=== PATIENT | male | born 1975 | race Caucasian/White ===

== ENCOUNTER 2016-11-10 13:17 | Emergency (ER) | payer OTHER ==
[~2016-11-10] VITALS: Ht 177.8 cm; Wt 108.9 kg
--- OUTSIDE RECORDS SUMMARY | 2016-11-10 13:49 | External Medical Summary Rpt ---
Author Author , Organization [employer] Address Unknown Phone Unavailable Care Team Providers Care Client Experience Consultant Name Role Phone FELIBERTO DONALD, Unavailable Unavailable FELIBERTO DONALD JEFFREY W, Unavailable Unavailable CARMENCITA PAULINO DAVID A, Unavailable Unavailable RERE SIEGEL [facility], Unavailable Unavailable [facility] AYO GILL, BRIDGET, Unavailable Unavailable VIRAJ MORA, Unavailable Unavailable VIRAJ PEREYRA [facility], Unavailable Unavailable [facility] Merle WHITAKER, Merle WHITAKER Unavailable Unavailable N [id number], Unavailable Unavailable [id number] VIOLETA SINGLETON, Unavailable Unavailable VIOLETA SINGLETON [facility] Unavailable Unavailable [facility], [facility] TUCKER, DIXIE, TUCKER, Unavailable Unavailable DIXIE [facility] Unavailable Unavailable CTR, [facility] Un[facility], [facility] PRANEETH REYES, Unavailable Unavailable PRANEETH REYES [facility] Unavailable Unavailable #[id number], [facility][id number] [facility] Unavailable Unavailable #[id number], [id number] Purpose Continuity of Care Document - 12-22-2007 through 2016 Problems Code Diagnosis DOS Provider Status 79852 OBSTRUCTIVE 10-17-2008 [facility] 48696 RESTLESS 08-18-2008 [place]OR[place], LEGS CARMENCITA Valdez SYNDROME 04368 HYPERSOMNIA 08-18-2008 [place], WITH SLEEP CARMENCITA Valdez [facility] UNSPECIFIED 75273 OTHER 08-18-2008 LORA, MALAISE AND CARMENCITA Valdez FATIGUE 78316 UNSPECIFIED 08-11-2008 [facility] INFECTION IN CCE & UNS SITE 56972 INSOMNIA 08-11-2008 [place] UNSPECIFIED [facility] 24029 OBESITY, 08-03-2008 [facility] UNSPECIFIED MEDICAL CTR 4011 ESSENTIAL 06-30-2008 [place] HYPERTENSIO [facility] N, BENIGN 08505 HELICOBACTE 05-16-2008 [facility] PYLORI [facility] INFECTION 57824 UNS 05-03-2008 GASTRITIS&G [facility]ODU[facility] HEMORR 5589 OTH&UNSPEC 05-03-2008 [facility] NONINFECTIO N EMERGENCY US PHYS INC GASTROENTER ITIS&COLITI S 7804 DIZZINESS 05-03-2008 AND [facility] GIDDINESS [facility] 04005 NAUSEA 05-03-2008 ALONE [facility] 77286 ABDOMINAL 05-03-2008 [facility] [place], RADIOLOGY UNSPECIFIED SITE 84234 ABDOMINAL 05-03-2008 PAIN OTHER [facility] SPECIFIED [facility] 2724 OTHER AND 04-26-2008 [place] UNSPECIFIED [facility] HYPERLIPIDE PABLO 80855 OTH 03-07-2008 [place] [facility] EXTRAPYRAMI [facility] STAN DZ&ABNORM MOVMNT DISORDER 2141 LIPOMA OF 02-08-2008 [facility] RUN OTHER SKIN SURGICAL AND SPECIALIST SUBCUTANEOU S TISSUE 8900 OPEN WOUND 02-08-2008 [facility] HIP&THIGH MEDICAL CTR WITHOUT MENTION COMP V679 UNSPECIFIED 01-21-2008 [place] FOLLOW-UP [facility] EXAMINATION 4019 UNSPECIFIED 01-13-2008 [facility] HYPERTENSIO CENTER N 72556 ASTHMA, 01-13-2008 [facility] UNSPECIFIED MEDICAL , CENTER UNSPECIFIED STATUS 68175 UNSPECIFIED 01-13-2008 [facility] ARTHOPATHY, CENTER HAND V1302 PERSONAL 01-13-2008 [facility] HISTORY OF MEDICAL URINARY CENTER TRACT INFECTION V173 FAMILY 01-13-2008 [facility] HISTORY OF MEDICAL ISCHEMIC CENTER HEART DISEASE V1749 FAMILY 01-13-2008 [facility] HISTORY OF MEDICAL OTHER CENTER CARDIOVASCU LAR DISEASES V175 FAMILY 01-13-2008 [facility] HISTORY OF MEDICAL ASTHMA CENTER 11594 PAIN IN 12-28-2007 [place] [facility] SURGICAL PELVIC SPECIALIST REGION AND THIGH Medications Na ND Rx Da Fi Fi Am Da Di Ph RX Ph St me C No te ll ll ou ys ag ar # ys at rm s nt no ma ic us Or Da si cy ia de te s n re d 58 03 05 01 30 30 FR 84 SH Ac 17 -1 -2 .0 EN 08 OR ti 70 2- 1- 00 CH 2 T ve 36 20 20 BU RA 80 09 09 RG CH 9 EL PH AR MA CY SI 55 11 05 01 30 30 FR 84 SH Ac MV 11 -1 -2 .0 EN 07 OR ti 10 9- 1- 00 CH 2 T ve TA 19 20 20 BU RA TI 90 08 09 RG CH N 5 EL 20 PH AR MG MA CY TA BL ET 58 03 03 00 30 30 FR 84 SH Ac 17 -1 -2 .0 EN 08 OR ti 70 2- 6- 00 CH 2 T ve 36 20 20 BU RA 80 09 09 RG CH 9 EL PH AR MA CY SI 55 11 03 00 30 30 FR 84 SH Ac MV 11 -1 -2 .0 EN 07 OR ti 10 9- 6- 00 CH 2 T ve TA 19 20 20 BU RA TI 90 08 09 RG CH N 5 EL 20 PH AR MG MA CY TA BL ET LO 00 03 03 00 30 30 FR 83 AL Ac RA 90 -0 -1 .0 EN 55 IK ti TA 45 6- 2- 00 CH 8 ER ve DI 83 20 20 BU NE 34 09 09 RG DE -D 8 NI PH S 24 AR O HR MA CY TA BL ET TR 50 03 03 00 30 30 FR 83 AL Ac AZ 11 -0 -1 .0 EN 55 IK ti OD 10 6- 2- 00 CH 9 ER ve ON 43 20 20 BU E 40 09 09 RG DE 10 3 NI 0 PH S MG AR O MA TA CY BL ET 00 03 03 00 30 25 FR 83 AL Ac 03 -0 -1 .0 EN 55 IK ti 70 6- 2- 00 CH 7 ER ve 24 20 20 BU 13 09 09 RG DE 0 NI PH S AR O MA CY CH 00 11 03 00 15 30 ME 46 SH Ac LO 37 -1 -1 .0 NI 00 OR ti RT 80 9- 2- 00 FE 17 T ve SLOAN 21 20 20 E RA LI 30 08 09 CO CH DO 1 UN EL NE TY 50 PH AR MG M TA BL ET ME 49 11 02 00 30 30 ME 45 SH Ac TO 88 -1 -2 .0 NI 90 OR ti IN 40 9- 6- 00 FE 33 T ve OL 40 20 20 E RA OL 60 08 09 CO CH 1 UN EL FOSTER TY CC PH ER AR M 10 0 MG TA B SI 68 11 02 00 30 30 ME 45 SH Ac MV 38 -1 -2 .0 NI 90 OR ti 20 9- 6- 00 FE 32 T ve TA 06 20 20 E RA TI 71 08 09 CO CH N 6 UN EL 20 TY MG PH AR TA M BL ET TR 50 01 01 00 30 30 FR 80 HU Ac AZ 11 -2 -3 .0 EN 42 GH ti OD 10 3- 0- 00 CH 8 ES ve ON 43 20 20 BU E 40 09 09 RG PA 10 3 TR 0 PH IC MG AR K MA D TA CY BL ET CH 00 11 01 02 30 30 FR 76 SH Ac LO 37 -1 -3 .0 EN 36 OR ti RT 80 9- 0- 00 CH 7 T ve SLOAN 22 20 20 BU RA LI 20 08 09 RG CH DO 1 EL NE PH AR 25 MA CY MG TA BL ET 64 11 01 00 30 30 WA 70 SH Ac 72 -1 -1 .0 L- 92 OR ti 00 9- 5- 00 MA 11 T ve 20 20 20 RT 2 RA 41 08 09 CH 0 PH EL AR MA CY #1 14 0 ME 49 11 00 30 30 WA 70 SH Ac TO 88 -1 -1 .0 L- 92 OR ti IN 40 9- 5- 00 MA 11 T ve OL 40 20 20 RT 3 RA OL 60 08 09 CH 1 PH EL FOSTER AR CC MA CY ER #1 10 14 0 0 MG TA B CH 00 11 06 08 30 30 FR 76 SH Ac LO 37 -1 -0 .0 EN 36 OR ti RT 80 9- 1- 00 CH 7 T ve SLOAN 22 20 20 BU RA LI 20 08 09 RG CH DO 1 EL NE PH AR 25 MA CY MG TA BL ET SI 55 11 06 08 30 30 FR 76 SH Ac MV 11 -1 -0 .0 EN 36 OR ti 10 9- 1- 00 CH 9 T ve TA 19 20 20 BU RA TI 90 08 09 RG CH N 5 EL 20 PH AR MG MA CY TA BL ET TE 00 12 12 00 56 14 FR 77 SH Ac TR 17 -0 -1 .0 EN 50 OR ti AC 22 9- 8- 00 CH 9 T ve YC 40 20 20 BU RA LI 78 08 08 RG CH NE 0 EL PH 50 AR 0 MA MG CY CA PS UL E ME 50 12 12 00 52 14 FR 77 AL Ac TR 11 -0 -1 .0 EN 55 IK ti ON 10 9- 8- 00 CH 8 ER ve ID 33 20 20 BU AZ 40 08 08 RG DE OL 2 NI E PH S 50 AR O 0 MA MG CY TA BL ET RO 00 11 12 00 30 30 FR 76 AL Ac PI 37 -1 -1 .0 EN 37 IK ti NI 85 9- 8- 00 CH 0 ER ve RO 50 20 20 BU LE 20 08 08 RG DE 1 NI HC PH S L AR O 2 MA MG CY TA BL ET BI 00 12 12 00 11 14 FR 77 AL Ac SM 90 -0 -1 2. EN 50 IK ti AT 41 9- 8- 00 CH 7 ER ve RO 31 20 20 0 BU L 54 08 08 RG DE TA 6 NI BL PH S ET AR O MA CH CY EW ME 49 11 12 00 30 30 FR 76 AL Ac TO 88 -1 -1 .0 EN 36 IK ti IN 40 9- 8- 00 CH 8 ER ve OL 40 20 20 BU OL 60 08 08 RG DE 1 NI FOSTER PH S CC AR O MA ER CY 10 0 MG TA B IN 37 12 12 00 30 15 FR 77 AL Ac IL 00 -0 -1 .0 EN 50 IK ti OS 00 9- 8- 00 CH 8 ER ve EC 45 20 20 BU 50 08 08 RG DE OT 3 NI C PH S 20 AR O .6 MA CY MG TA BL ET SI 55 11 12 00 30 30 FR 76 AL Ac MV 11 -1 -0 .0 EN 36 IK ti 10 9- 4- 00 CH 9 ER ve TA 19 20 20 BU TI 90 08 08 RG DE N 5 NI 20 PH S AR O MG MA CY TA BL ET CH 00 11 12 00 30 30 FR 76 AL Ac LO 37 -1 -0 .0 EN 36 IK ti RT 80 9- 4- 00 CH 7 ER ve SLOAN 22 20 20 BU LI 20 08 08 RG DE DO 1 NI NE PH S AR O 25 MA CY MG TA BL ET ME 49 08 11 00 30 30 ME 45 HU Ac TO 88 -2 -2 .0 NI 40 GH ti IN 40 0- 0- 00 FE 40 ES ve OL 40 20 20 E OL 60 08 08 CO PA 1 UN TR FOSTER TY IC CC K PH D ER AR M 10 0 MG TA B RO 00 10 11 00 30 30 FR 75 SH Ac PI 37 -3 -0 .0 EN 05 OR ti NI 85 1- 7- 00 CH 8 T ve RO 50 20 20 BU RA LE 20 08 08 RG CH 1 EL HC PH L AR 2 MA MG CY TA BL ET 58 08 10 01 30 30 FR 69 No Ac 17 -2 -2 .0 EN 95 t ti 70 0- 3- 00 CH 5 Av ve 36 20 20 BU ai 80 08 08 RG la 9 bl PH e AR MA CY 00 09 10 00 10 25 FR 72 No Ac 09 -3 -0 0. EN 62 t ti 35 0- 9- 00 CH 5 Av ve 28 20 20 0 BU ai 30 08 08 RG la 1 bl PH e AR MA CY FOSTER 53 09 09 00 28 14 WA 70 SLOAN Ac LF 74 -0 -1 .0 L- 03 N ti AM 60 2- 1- 00 MA 72 NA ve ET 27 20 20 RT 6 NC HO 20 08 08 Y XA 5 PH C ZO AR LE MA -T CY MP #1 DS 0- 11 TA 39 BL ET 58 08 09 00 30 30 FR 69 No Ac 17 -2 -1 .0 EN 95 t ti 70 0- 1- 00 CH 5 Av ve 36 20 20 BU ai 80 08 08 RG la 9 bl PH e AR MA CY TO 00 07 08 01 30 30 FR 67 No Ac IN 18 -1 -2 .0 EN 91 t ti OL 61 6- 8- 00 CH 0 Av ve 09 20 20 BU ai XL 00 08 08 RG la 5 bl 50 PH e AR MG MA CY TA BL ET 00 08 08 00 30 3 RI 55 No Ac 40 -0 -1 .0 TE 55 t ti 60 7- 4- 00 66 Av ve 35 20 20 AI ai 70 08 08 D la 5 PH bl AR e M #3 55 5 TO 00 07 08 00 30 30 FR 67 No Ac IN 18 -1 -0 .0 EN 91 t ti OL 61 6- 1- 00 CH 0 Av ve 09 20 20 BU ai XL 00 08 08 RG la 5 bl 50 PH e AR MG MA CY TA BL ET Results Labs Lab Lab Date Result Refere Interp Status Commen Order Detail nces retati t Range on CBC WITH AUTO DIFF REFLEX (11-21-2013 06:00) Monocyt 16-2 0.4 X 0.3-0.9 Normal complet es # 014 10 3 ed (Auto) 06:00 Lymphoc 11-21-2 2.5 X 1.0-3.3 Normal complet ytes # 014 10 3 ed (Auto) 06:00 Neutrop 16-2 3.3 X 1.8-7.0 Normal complet hils # 014 10 3 ed (Auto) 06:00 Basophi 2 0.4 % 0-1.6 Normal complet ls (%) 014 ed (Auto) 06:00 Eosinop 06-16-2 1.9 % 0.0-5.8 Normal complet hils 014 ed (%) 06:00 (Auto) Monocyt 06-16-2 5.7 % 4.4-11. Normal complet es (%) 014 0 ed (Auto) 06:00 Lymphoc -16-2 38.8 % 17.6-40 Normal complet ytes 014 .8 ed (%) 06:00 (Auto) Basophi -16-2 0.0 X 0.0-0.2 Normal complet ls # 014 10 3 ed (Auto) 06:00 Comment: If a manual differential is indicated, submit order within Comment: 48 hours" Eosinop -16-2 0.1 X 0.0-0.5 Normal complet hils # 014 10 3 ed (Auto) 06:00 Neutrop -16-2 51.6 % 43.1-74 Normal complet hils 014 .8 ed (%) 06:00 (Auto) Mean 16-2 7.6 fL 6.0-10. Normal complet Platele 014 0 ed t 06:00 Volume Platele 16-2 163 x10 130-400 Normal complet t Count 014 3 ed 06:00 Red 16-2 14.2 % 11.5-14 Normal complet Cell 014 .5 ed Distrib 06:00 ution Width Mean 16-2 34.2 32-36 Normal complet Corpusc 014 g/dL ed ular 06:00 Hemoglo bin Concent Mean 16-2 27.3 pg 27-31 Normal complet Corpusc 014 ed ular 06:00 Hemoglo bin Mean 16-2 79.8 fL 80-94 Below complet Corpusc 014 low ed ular 06:00 normal Volume Hematoc 16-2 37.1 % 42.0-52 Below complet rit 014 .0 low ed 06:00 normal Hemoglo -16-2 12.7 14.0-18 Below complet bin 014 g/dL .0 low ed 06:00 normal Red -16-2 4.65 X 4.70-6. Below complet Blood 014 10 6 10 low ed Count 06:00 normal White 16-2 6.4 X 4.8-10. Normal complet Blood 014 10 3 8 ed Count 06:00 BASIC METABOLIC PANEL (11-21-2013 06:00) Glucose 295 70-100 Above complet Level 014 mg/dL high ed 06:00 normal BUN/Cre 10.1 7.0-25. Normal complet atinine 014 0 ed Ratio 06:00 Creatin >*59 Normal complet ine w 014 mL/min/ ed Estimat 06:00 1 ed GFR Comment: An eGFR of <60 mL/min/1.73 m2 for three months or more is Comment: indicative of chronic kidney disease. Patients with eGFR Comment: values > or = 60 mL/min/1.73 m2 may have chronic kidney Comment: disease if evidence of persistent proteinuria is present. Comment: Reference: [email or web address] Comment: *Units are mL/min/1.73m2 Creatin 0.8 0.7-1.2 Normal complet ine 014 mg/dL ed 06:00 Blood 8.1 6-20 Normal complet Urea 014 mg/dL ed Nitroge 06:00 n Anion 11 8-16 Normal complet Gap 014 ed 06:00 Carbon 23 22-29 Normal complet Dioxide 014 mmol/L ed Level 06:00 Chlorid 101.8 98-107 Normal complet e Level 014 mmol/L ed 06:00 Potassi 3.6 3.5-5.1 complet um 014 mmol/L ed Level 06:00 Sodium 136 136-145 Normal complet Level 014 mmol/L ed 06:00 Calcium 8.9 8.4-10. Normal complet Level 014 mg/dL 2 ed 06:00 Calcula 281 275-295 Normal complet corby 014 mOsm/L ed Osmolal 06:00 ity URINE MICROSCOPIC (11-19-2013 19:56) BACTERI TRACE NONE Normal complet A,URINE 014 /hpf SEEN ed 19:56 SQUAMOU NONE 0-5 Normal complet S 014 SEEN ed EPITHEL 19:56 /hpf IAL CELL,UR WBC,URI 0-5 0-5 Normal complet NE 014 /hpf ed 19:56 RBC,URI NONE 0-5 Normal complet NE 014 SEEN ed 19:56 /hpf LEUKOCY 06-14-2 NEGATIV NEGATIV Normal complet TE 014 E E ed ESTERAS 19:56 E ,URINE UROBILI 06-14-2 0.2 0.0-1.0 Normal complet NOGEN,U 014 E.H./dL ed RINE 19:56 Urine 06-14-2 NEGATIV NEGATIV Normal complet Bilirub 014 E E ed in 19:56 Comment: THE COLOR OF THE URINE CAN CAUSE A POSITIVE BILIRUBIN. NITRATE 06-14-2 NEGATIV NEGATIV Normal complet ,URINE 014 E E ed 19:56 Urine 06-14-2 NEGATIV NEGATIV Normal complet Ketones 014 E mg/dL E ed 19:56 Urine 06-14-2 >=1000 NEGATIV Abnorma complet Glucose 014 mg/dL E l ed (UA) 19:56 Urine 06-14-2 30 NEGATIV Abnorma complet Protein 014 mg/dL E l ed 19:56 mg/dL Urine 06-14-2 1.040 1.003-1 Above complet Specifi 014 .035 high ed c 19:56 normal [place] Urine -14-2 5.5 4.5-8.0 Normal complet pH 014 ed 19:56 BLOOD, 06-14-2 SMALL NEGATIV Abnorma complet URINE 014 E l ed 19:56 Urine 06-14-2 CLEAR Normal complet Appeara 014 ed nce 19:56 Urine 06-14-2 YELLOW Normal complet Color 014 ed 19:56 SOURCE, -14-2 CLEAN Normal complet URINE 014 CATCH ed 19:56 CLINITEST,URINE (11-19-2013 19:56) CLINITE 06-14-[address],URIN 014 mg/dL E ed E 19:56 CBC WITH AUTO DIFF REFLEX (11-19-2013 19:10) Basophi -14-2 0.3 % 0-1.6 Normal complet ls (%) 014 ed (Auto) 19:10 Eosinop -14-2 1.0 % 0.0-5.8 Normal complet hils 014 ed (%) 19:10 (Auto) Monocyt 06-14-2 6.8 % 4.4-11. Normal complet es (%) 014 0 ed (Auto) 19:10 Lymphoc -14-2 21.0 % 17.6-40 Normal complet ytes 014 .8 ed (%) 19:10 (Auto) Neutrop 06-14-2 69.6 % 43.1-74 Normal complet hils 014 .8 ed (%) 19:10 (Auto) Mean 06-14-2 8.0 fL 6.0-10. Normal complet Platele 014 0 ed t 19:10 Volume Platele 06-14-2 226 x10 130-400 Normal complet t Count 014 3 ed 19:10 Red 06-14-2 14.1 % 11.5-14 Normal complet Cell 014 .5 ed Distrib 19:10 ution Width Mean 06-14-2 34.7 32-36 Normal complet Corpusc 014 g/dL ed ular 19:10 Hemoglo bin Concent Mean 06-14-2 27.5 pg 27-31 Normal complet Corpusc 014 ed ular 19:10 Hemoglo bin Mean 06-14-2 79.2 fL 80-94 Below complet Corpusc 014 low ed ular 19:10 normal Volume Hematoc 06-14-2 45.8 % 42.0-52 Normal complet rit 014 .0 ed 19:10 Hemoglo 06-14-2 15.9 14.0-18 Normal complet bin 014 g/dL .0 ed 19:10 Red 06-14-2 5.78 X 4.70-6. Normal complet Blood 014 10 6 10 ed Count 19:10 White 06-14-2 7.9 X 4.8-10. Normal complet Blood 014 10 3 8 ed Count 19:10 Basophi 06-14-2 0.0 X 0.0-0.2 Normal complet ls # 014 10 3 ed (Auto) 19:10 Comment: If a manual differential is indicated, submit order within Comment: 48 hours" Eosinop 06-14-2 0.1 X 0.0-0.5 Normal complet hils # 014 10 3 ed (Auto) 19:10 Monocyt 06-14-2 0.5 X 0.3-0.9 Normal complet es # 014 10 3 ed (Auto) 19:10 Lymphoc 06-14-2 1.7 X 1.0-3.3 Normal complet ytes # 014 10 3 ed (Auto) 19:10 Neutrop 06-14-2 5.5 X 1.8-7.0 Normal complet hils # 014 10 3 ed (Auto) 19:10 STAT STREP CULTURE (11-19-2013 17:36) STAT Pending active STREP 014 CULTURE 17:36 STAT STREP GRP A (11-19-2013 17:36) Comment: Source Name: THROAT\\E\\.br\\E\\ STAT NEGATIV Normal complet STREP 014 E ed GRP A 17:36 STAT SSGA complet STREP 014 ed GRP A 17:36 CBC WITH AUTO DIFF REFLEX (04-03-2012 09:45) BASOPHI 10-27-2 0.0 X 0.0-0.2 Normal complet LS # 012 10 3 ed (AUTO) 09:45 EOSINOP 10-27-2 0.1 X 0.0-0.5 Normal complet HILS # 012 10 3 ed (AUTO) 09:45 MONOCYT 10-27-2 0.6 X 0.3-0.9 Normal complet ES # 012 10 3 ed (AUTO) 09:45 LYMPHOC 10-27-2 1.5 X 1.0-3.3 Normal complet YTES # 012 10 3 ed (AUTO) 09:45 NEUTROP 10-27-2 8.4 X 1.8-7.0 Above complet HILS # 012 10 3 high ed (AUTO) 09:45 normal BASOPHI 10-27-2 0.3 % 0-1.6 Normal complet LS % 012 ed (AUTO) 09:45 EOSINOP 10-27-2 0.8 % 0.0-5.8 Normal complet HILS % 012 ed (AUTO) 09:45 MONOCYT 10-27-2 5.2 % 4.4-11. Normal complet ES % 012 0 ed (AUTO) 09:45 LYMPHOC 10-27-2 14.3 % 17.6-40 Below complet YTES % 012 .8 low ed (AUTO) 09:45 normal NEUTROP 10-27-2 78.2 % 43.1-74 Above complet HILS % 012 .8 high ed (AUTO) 09:45 normal Comment: If a manual differential is indicated, submit order within Comment: 48 hours" MEAN 10-27-2 7.6 fL 6.0-10. Normal complet PLATELE 012 0 ed T 09:45 VOLUME PLATELE 10-27-2 166 x10 130-400 Normal complet T COUNT 012 3 ed 09:45 RDW 04-03-2 13.1 % 11.5-14 Normal complet 012 .5 ed 09:45 MCHC 04-03-2 32.3 32-36 Normal complet 012 g/dL ed 09:45 MCH 04-03-2 27.3 pg 27-31 Normal complet 012 ed 09:45 MCV 2 84.5 fL 80-94 Normal complet 012 ed 09:45 HEMATOC 04-03-2 51.2 % 42.0-52 Normal complet RIT 012 .0 ed 09:45 HEMOGLO 04-03-2 16.6 14.0-18 Normal complet BIN 012 g/dL .0 ed 09:45 RED 04-03-2 6.05 X 4.70-6. Normal complet BLOOD 012 10 6 10 ed COUNT 09:45 WBC 04-03-2 10.7 X 4.8-10. Normal complet (WHITE 012 10 3 8 ed BLOOD 09:45 CELL) LIPASE (04-03-2012 09:45) LIPASE 2 31 u/L 13-60 Normal complet 012 ed 09:45 CMP (04-03-2012 09:45) ALKALIN 04-03-2 105 40-130 Normal complet E 012 IU/L ed PHOSPHA 09:45 TASE ALBUMIN 04-03-2 1.5 1.1-1.8 Normal complet /GLOBUL 012 ed IN 09:45 RATIO GLOBULI 04-03-2 3.2 1.5-3.8 Normal complet N 012 gm/dL ed 09:45 ALBUMIN 04-03-2 4.7 3.5-5.2 Normal complet 012 g/dL ed 09:45 PROTEIN 04-03-2 7.9 6.4-8.3 Normal complet , TOTAL 012 g/dL ed 09:45 ALANINE 04-03-2 15 IU/L 0-41 Normal complet 012 ed AMINOTR 09:45 ANSFERA SE ASPARTA 04-03-2 26 IU/L 0-40 Normal complet TE 012 ed AMINO 09:45 TRANSFE RASE BILIRUB 04-03-2 0.7 0.0-1.2 Normal complet IN,TOTA 012 mg/dL ed L 09:45 CALCIUM 04-03-2 9.9 8.4-10. Normal complet 012 mg/dL 2 ed 09:45 OSMOLAL 279 275-295 Normal complet ITY,DEREK 012 mOsm/L ed CULATED 09:45 GLUCOSE 99 70-100 Normal complet 012 mg/dL ed 09:45 BUN/CRE 11.9 7.0-25. Normal complet ATININE 012 0 ed RATIO 09:45 eGFR >*59 Normal complet 012 mL/min/ ed 09:45 1 Comment: An eGFR of <60 mL/min/1.73 m2 for three months or more is Comment: indicative of chronic kidney disease. Patients with eGFR Comment: values > or = 60 mL/min/1.73 m2 may have chronic kidney Comment: disease if evidence of persistent proteinuria is present. Comment: Reference: [email or web address] Comment: *Units are mL/min/1.73m2 CREATIN 1.0 0.7-1.2 Normal complet INE 012 mg/dL ed 09:45 BLOOD 11.9 6-20 Normal complet UREA 012 mg/dL ed NITROGE 09:45 N ANION 10 8-16 Normal complet GAP 012 ed 09:45 CARBON 29 22-29 Normal complet DIOXIDE 012 mmol/L ed 09:45 CHLORID 101.2 98-107 Normal complet E 012 mmol/L ed 09:45 POTASSI 3.5 3.5-5.1 Normal complet UM 012 mmol/L ed 09:45 SODIUM 140 136-145 Normal complet 012 mmol/L ed 09:45 PARTIAL THROMBOPLASTIN TIME (04-03-2012 09:45) PARTIAL 26.0 25.9-29 Normal complet 012 SECONDS .8 ed THROMBO 09:45 PLASTIN TIME PT (04-03-2012 09:45) PROTHRO 10.1 9.9-11. Normal complet MBIN 012 SECONDS 7 ed TIME 09:45 INR 1.0 0.9-1.1 Normal complet 012 ed 09:45 Comment: INR: Comment: Suggested Therapeutic range for stabilized anticoagulated Comment: patients: Comment: Prophylaxis of venous thrombosis (high risk surgery): Comment: Treatment of venous thrombosis Comment: Treatment of pulmonary embolism Comment: Prevention of systemic embolism Comment: Tissue heart valves Comment: 2.0-3.0 Comment: Acute myocardial infarction (to prevent systemic Comment: embolism) Comment: Valvular heart disease Comment: Atrial fibrillation Comment: Mechanical prosthetic valves (high risk) Comment: 2.5-3.5 Comment: If oral anticoagulant therapy is elected to prevent Comment: recurrent myocardial infarction, an INR of 2.5 to 3.5 is Comment: recommended. Consistent with FDA recommendations. Comment: Reference: CHEST 2004;126:9202-6472. Procedures Procedure DOS Code Location Performer Comment CONTINUOU E[address] [facility] S [facility] AIR[facility] PRESSURE DEVICE CONTINUOU E[address] JENN[facility] S [facility] AIR[facility]AY [facility]ESSURE DEVICE CONTINUOU [address] JENN[facility] S [facility] AIRWAY PRESSURE DEVICE FILTER A[address] JENN[facility] NON [facility] USED W/POS ARWAY PRESS DEVICE TUBING A[address] JENN[facility] USED WITH [facility] AIRWAY PRESSURE DEVICE POLYSOM [address] LORA BELLAERSON 6/>YRS 11 , CARMENCITA TSE SLEEP W W W/CPAP 4/> ADDL SAVANA ATTND POLYSOM [address] JENNIFER 6/>YRS 11 MEDICAL MEDICAL SLEEP CTR CTR W/CPAP 4/> ADDL SAVANA ATTND IMMUNOASS [address]08 [facility] [address] [place] [address] AGT ANTB QUAL/SEMI [place]LIE [address] [place] [address] [address] CNTRL Merle CAMEJO ABDOMINAL 8 RADIOLOGY N REAL TIME W/IMAGE LIMITED BLOOD [id number] COMPLETE [facility] AUTO&AUTO [facility] WBC URNLS DIP [address] STICK/TAB [facility] AUTO MICROSCOP Y COLLECTIO [address] [facility] VENOUS [address] [place] [address] BLOOD [facility] VENIPUNCT [facility] COMPREHEN [address] METABOLIC [place] [address] [facility] SUSCEPTIB [address] JENNIFER LTY STDY 8 [facility] MEDICAL ANTIMICRB CTR CTR IAL MICRO/AGA R DILUTJ CUL BACT [address] [facility] XCPT 8 MEDICAL MEDICAL URINE CTR CTR BLOOD/STO OL AEROBIC ISOL LIPID [address] [facility]ENN[facility] PANEL 8 MEDICAL MEDICAL CTR CTR COLLECTIO 19074 SABINOAlbina NAVARRO VENOUS [address] [place] [address] BLOOD VENIPUNCT URE COMPREHEN [address] [facility]ENN[facility] SIVE MEDICAL MEDICAL METABOLIC CTR CTR PANEL INJECTION [id number] [facility]ENN[facility]ER 8 MEDICAL MEDICAL METOCLOPR CTR CTR AMIDE HCL UP TO 10 MG LEVEL [address] [facility]ENN[facility] SURG 8 MEDICAL MEDICAL PATHOLOGY CTR CTR GROSS&JURGEN ROSCOPIC EXAM INJECTION J[address] [facility]ENN[facility] 8 MEDICAL MEDICAL CEFAZOLIN CTR CTR SODIUM [address] IN[address] [facility]ENN[facility] FENTANYL 8 MEDICAL MEDICAL CITRATE CTR CTR 0.[address] [facility] VONKUSTER INTEG 8 [facility] MEDICAL ES ANT CTR TRUNK & PERINEUM NOS EXC B[address] [facility]ENN[facility] LESION 8 MEDICAL MEDICAL MRGN XCP CTR CTR SK TG T/A/L >4.0 CM REPAIR [address] [place], INTERMEDI 8 SURGICAL AYO C ATE SPECIALIS S/A/T/E T 2.6-7.[address] [facility] INTERMEDI 8 MEDICAL MEDICAL ATE CTR CTR S/A/T/E 7.6-12.[address] [facility] LACTATE 8 MEDICAL MEDICAL INFUSION CTR CTR UP TO [address] [facility] ASTIN 8 MEDICAL MEDICAL TIME CTR CTR PARTIAL PLASMA/WH OLE BLOOD ECG [address] [facility] ROUTINE 8 MEDICAL MEDICAL ECG CTR CTR W/LEAST 12 LDS TRCG ONLY W/O I&R PROTHROMB [address] [facility] IN TIME 8 MEDICAL MEDICAL CTR CTR BASIC [address] [facility] METABOLIC 8 MEDICAL MEDICAL PANEL CTR CTR CALCIUM TOTAL BLOOD [address] [facility] COUNT 8 MEDICAL MEDICAL COMPLETE CTR CTR AUTOMATED ECG [address] [facility]ENN[facility] SINGLETON, ROUTINE 8 MEDICAL VIOLETA ECG CENTER W/LEAST 12 LDS I&R ONLY COLLECTIO [address] JENN[facility]ER N VENOUS 8 MEDICAL MEDICAL BLOOD CTR CTR VENIPUNCT URE Encounters Encounter Start End Date Code Location Performer Type Date OFFICE 58102 [facility] 9 9 , [facility] ION W W NEW/ESTAB PATIENT 60 MIN OFFICE 15407 ANNIE MATAMOROS 9 9 [facility] VISIT [address] [facility] - 9 9 MEDICAL OUTPATIEN CTR T OFFICE 05907 ANNIE MATAMOROS 9 9 [facility] VISIT 15 MINUTES OFFICE 49585 ANNIE MATAMOROS 8 8 [facility]ISIT 15 MINUTES EMERGENCY 62965 [facility] 8 8 [place] [facility] EMERGENCY T VISIT [facility] HIGH/URGE NT [facility]VERITY [facility] [place] [address] 8 [facility] [address] [place] [address] 8 [facility] [facility] OFFICE 45727 ANNIE MATAMOROS 8 8 [facility] VISIT 15 MINUTES OFFICE 22103 ANNIE MATAMOROS 8 8 [facility] VISIT 15 MINUTES OFFICE 93692 TRUONG GIBBONS ANNIE GILL 8 8 SURGICAL AYO C T VISIT SPECIALIS 10 T MINUTES HOSPITAL [facility] [address] T OFFICE 24869 TRUONG GILLCELESTEPATIJATIN 8 8 SURGICAL AYO C T VISIT SPECIALIS 10 T MINUTES OFFICE 51172 ANNIE BLANCO 8 8 [facility] T VISIT 15 MINUTES [facility] [place] [address] 8 MEDICAL OUTPATIEN [facility] T HOSP[facility] [address] T OFFICE 05835 ANNIE PIMENTEL 8 8 SURGICAL AYO C T NEW 45 SPECIALIS MINUTES T OFFICE 61152 ANNIE BLANCO 8 8 [facility] VIRAJ D T VISIT 25 MINUTES
--- OUTSIDE RECORDS SUMMARY | 2016-11-10 13:49 | External Medical Summary Rpt ---
Author Author , Organization [employer] Address Unknown Phone Unavailable Care Team Providers Care Mobile Heavy Equipment Operator Name Role Phone FELIBERTO DONALD, Unavailable Unavailable FELIBERTO DONALD JEFFREY W, Unavailable Unavailable CARMENCITA PAULINO DAVID A, Unavailable Unavailable RERE SIEGEL [facility], Unavailable Unavailable [facility] AYO GILL, BRIDGET, Unavailable Unavailable VIRAJ MORA, Unavailable Unavailable VIRAJ PEREYRA [facility], Unavailable Unavailable [facility] Merle WHITAKER, Merle WHITAKER Unavailable Unavailable [id number], Unavailable Unavailable [id number] VIOLETA SINGLETON, Unavailable Unavailable VIOLETA SINGLETON [facility] Unavailable Unavailable [facility] TUCKER, DIXIE, TUCKER, Unavailable Unavailable DIXIE [facility] Unavailable Unavailable CTR, [facility] Unavailable Unavailable HOSPICE, [facility] PRANEETH REYES, Unavailable Unavailable PRANEETH REYES [facility] Unavailable Unavailable #[phone], [facility] #10-1139 [facility] Unavailable Unavailable #1140, [facility] Purpose Continuity of Care Document - 12-22-2007 through 2016 Problems Code Diagnosis DOS Provider Status 00448 OBSTRUCTIVE 10-17-2008 [facility] 25473 RESTLESS 08-18-2008 LORA, LEGS CARMENCITA Valdez SYNDROME 30007 HYPERSOMNIA 08-18-2008 LORA, WITH SLEEP CARMENCITA Valdez [facility] UNSPECIFIED 26586 OTHER 08-18-2008 LORA, MALAISE AND CARMENCITA Valdez FATIGUE 19448 UNSPECIFIED 08-11-2008 [facility] INFECTION IN CCE & UNS SITE 11889 INSOMNIA 08-11-2008 [place] UNSPECIFIED [facility] 71936 OBESITY, 08-03-2008 [facility] UNSPECIFIED MEDICAL CTR 4011 ESSENTIAL 06-30-2008 [place] HYPERTENSIO [facility] N, BENIGN 55114 HELICOBACTE 05-16-2008 [facility] PYLORI [facility] INFECTION 69242 UNS 05-03-2008 GASTRITIS&G [facility] ASTRODUODIT [facility] W/O [facility] HEMORR 5589 OTH&UNSPEC 05-03-2008 [facility] NONINFECTIO N EMERGENCY US PHYS INC GASTROENTER ITIS&COLITI S 7804 DIZZINESS 05-03-2008 AND [facility] GIDDINESS [facility] 44244 NAUSEA 05-03-2008 ALONE [facility] 59640 ABDOMINAL 05-03-2008 [facility] [place] PAIN, RADIOLOGY UNSPECIFIED SITE 68217 ABDOMINAL 05-03-2008 PAIN OTHER [facility] SPECIFIED [facility] 2724 OTHER AND 04-26-2008 [place] UNSPECIFIED [facility] HYPERLIPIDE PABLO 95244 OTH 03-07-2008 [facility] EXTRAPYRAMI [facility] STAN DZ&ABNORM MOVMNT DISORDER 2141 LIPOMA OF 02-08-2008 [employer] RUN OTHER SKIN SURGICAL AND SPECIALIST SUBCUTANEOU S TISSUE 8900 OPEN WOUND 02-08-2008 [facility] HIP&THIGH MEDICAL CTR WITHOUT MENTION COMP V679 UNSPECIFIED 01-21-2008 [place] FOLLOW-UP [facility] EXAMINATION 4019 UNSPECIFIED 01-13-2008 [facility] HYPERTENSIO CENTER N 65370 ASTHMA, 01-13-2008 [facility] UNSPECIFIED MEDICAL , CENTER UNSPECIFIED STATUS 94639 UNSPECIFIED 01-13-2008 [facility] ARTHOPATHY, CENTER HAND V1302 PERSONAL 01-13-2008 [facility] HISTORY OF MEDICAL URINARY CENTER TRACT INFECTION V173 FAMILY 01-13-2008 [facility] HISTORY OF MEDICAL ISCHEMIC CENTER HEART DISEASE V1749 FAMILY 01-13-2008 [facility] HISTORY OF MEDICAL OTHER CENTER CARDIOVASCU LAR DISEASES V175 FAMILY 01-13-2008 [facility] HISTORY OF MEDICAL ASTHMA CENTER 41542 PAIN IN 12-28-2007 [place] JOINT SURGICAL [...] -1 -2 .0 NI 90 OR ti DE 40 9- 6- 00 FE 33 T [...] -1 -1 .0 L- 92 OR ti DE 40 9- 5- 00 MA 11 T [...] -1 -1 .0 EN 36 IK ti DE 40 9- 8- 00 CH 8 ER ve OL 40 20 20 BU OL 60 08 08 RG DE 1 NI FOSTER PH S CC AR O MA ER CY 10 0 MG TA B DE 37 12 12 00 30 15 FR [...] -2 -2 .0 NI 40 GH ti DE 40 0- 0- 00 FE 40 ES [...] 01 30 30 FR 67 No Ac DE 18 -1 -2 .0 EN 91 t [...] 00 30 30 FR 67 No Ac DE 18 -1 -0 .0 EN 91 t [...] 014 .035 high ed c 19:56 normal [place] Urine -14-2 5.5 4.5-8.0 Normal complet pH [...] Consistent with FDA recommendations. Comment: Reference: CHEST 2004;126:7908-9216. Procedures Procedure DOS Code Location Performer Comment [...] POSITIVE HOSPICE HOSPICE AIRWAY PRESSURE DEVICE POLYSOM 02915 LORA BELLAERSON 6/>YRS 9 , CARMENCITA TSE SLEEP W W W/CPAP 4/> ADDL SAVANA ATTND POLYSOM [address] JENNIFER 6/>YRS 9 MEDICAL MEDICAL SLEEP CTR CTR W/CPAP 4/> ADDL SAVANA ATTND IMMUNOASS 18839 BEN MATAMOROS NFCT [address] [place] [address] AGT ANTB QUAL/SEMI [place] [address] [place] [address] [address] CN[facility] Merle CAMEJO ABDOMINAL 8 RADIOLOGY N REAL TIME W/IMAGE LIMITED BLOOD [address] COMPLETE [facility] AUTO&AUTO [facility] WBC URNLS DIP [address] STICK/TAB [facility] AUTO MICROSCOP Y COLLECTIO 63856 [facility] VENOUS [address] [place] [address] BLOOD [facility] VENIPUNCT [facility] COMPREHEN [address] METABOLIC [place] [address] [facility] SUSCEPT[address] JENNIFER LTY STDY 8 MEDICAL MEDICAL ANTIMICRB CTR CTR IAL MICRO/AGA R DILUTJ CUL BACT [address] JENN[facility]ER XCPT 8 MEDICAL MEDICAL URINE CTR CTR BLOOD/STO OL AEROBIC ISOL LIPID [address] JENNIFER PANEL 8 MEDICAL MEDICAL CTR CTR COLLECTIO 22938 SABINOAlbina NAVARRO VENOUS [address] [place] [address] BLOOD VENIPUNCT URE COMPREHEN [address] JENNIFER SIVE MEDICAL MEDICAL METABOLIC CTR CTR PANEL INJECTION J2765 [facility] [address] JENNIFER 8 MEDICAL MEDICAL METOCLOPR CTR CTR AMIDE HCL UP TO 10 MG LEVEL III [address] JENNIFER SURG 8 MEDICAL MEDICAL PATHOLOGY CTR CTR GROSS&JURGEN ROSCOPIC EXAM INJECTION J0[address] JENNIFER 8 MEDICAL MEDICAL CEFAZOLIN CTR CTR SODIUM [address] IN[address] JENNIFER FENTANYL 8 MEDICAL MEDICAL CITRATE CTR CTR 0.[address] VONKUSTER INTEG 8 [facility] MEDICAL ES ANT CTR TRUNK & PERINEUM NOS EXC B[address] JENNIFER LESION 8 MEDICAL MEDICAL MRGN XCP CTR CTR SK TG T/A/L >4.0 CM REPAIR 71032 [place] GILL, INTERMEDI 8 SURGICAL AYO C ATE SPECIALIS S/A/T/E T 2.6-7.[address] JENNIFER INTERMEDI 8 MEDICAL MEDICAL ATE CTR CTR S/A/T/E 7.6-12.[address] JENN[facility]ER LACTATE 8 MEDICAL MEDICAL INFUSION CTR CTR UP TO [address] JENNIFER ASTIN 8 MEDICAL MEDICAL TIME CTR CTR PARTIAL PLASMA/WH OLE BLOOD ECG [address] JENNIFER ROUTINE 8 MEDICAL MEDICAL ECG CTR CTR W/LEAST 12 LDS TRCG ONLY W/O I&R PROTHROMB [address] JENNIFER IN TIME 8 MEDICAL MEDICAL CTR CTR BASIC [address] JENNIFER METABOLIC 8 MEDICAL MEDICAL PANEL CTR CTR CALCIUM TOTAL BLOOD [address] JENN[facility]ER COUNT 8 MEDICAL MEDICAL COMPLETE CTR CTR AUTOMATED ECG [address] JENNIFER SINGLETON, ROUTINE 8 MEDICAL VIOLETA ECG CENTER W/LEAST 12 LDS I&R ONLY COLLECTIO [address] JENNIFER N VENOUS 8 MEDICAL MEDICAL BLOOD CTR CTR VENIPUNCT URE Encounters Encounter Start End Date Code Location Performer Type Date OFFICE 75021 LORA PAULINO CONSULTAT 9 9 , CARMENCITA CARMENCITA ION W W NEW/ESTAB PATIENT 60 MIN OFFICE 26597 ANNIE MATAMOROS 9 9 [facility] VISIT [address] JENNIFER - 9 9 MEDICAL OUTPATIEN CTR T OFFICE 42957 ANNIE MATAMOROS 9 9 [facility] VISIT 15 MINUTES OFFICE 05882 ANNIE MATAMOROS 8 8 [facility] VISIT 15 MINUTES EMERGENCY 55518 [facility] 8 8 O[place]AR [place] [facility] EMERGENCY T VISIT [facility] HIGH/URGE NT SEVERITY HOSPITAL [place] [address] 8 [facility] EMERGENCY [address]10 [place] [address] 8 [facility] HOSPITAL SEVERITY OFFICE 37098 ANNIE MATAMOROS 8 8 [facility] VISIT 15 MINUTES OFFICE 45878 ANNIE MATAMOROS 8 8 [facility] VISIT 15 MINUTES OFFICE 36438 TRUONG GIBBONS ANNIE GILL 8 8 SURGICAL AYO C T VISIT SPECIALIS 10 T MINUTES HOSPITAL [facility] 8 8 MEDICAL OUTPATIEN CTR T OFFICE 19080 TRUONG GILLCELESTEPATIJATIN 8 8 SURGICAL AYO C T VISIT SPECIALIS 10 T MINUTES OFFICE 09726 ANNIE BLANCO 8 8 [facility] T VISIT 15 MINUTES HOSPITAL [place] [address] 8 [facility] 8 [address] MED[address]IEN CTR T OFFICE 85433 ANNIE PIMENTEL 8 8 SURGICAL AYO C T NEW 45 SPECIALIS MINUTES T OFFICE 66408 ANNIE BLANCO 8 8 [facility] VIRAJ D T VISIT 25 MINUTES
--- OUTSIDE RECORDS SUMMARY | 2016-11-10 13:51 | External Medical Summary Rpt ---
Author Author BELLE Hickman, BELLE Hickman Organization [employer] Address Unknown Phone Unavailable
--- OUTSIDE RECORDS SUMMARY | 2016-11-10 13:51 | External Medical Summary Rpt ---
Demographics Preferred Language Canadian Marital Status Unknown Spiritism Affiliation Unknown Race Unknown Ethnic Group Unknown Author Author , Organization [employer] Address Unknown Phone Unavailable Purpose Continuity of Care Document - through 2016 Immunization No patient found.
--- OUTSIDE RECORDS SUMMARY | 2016-11-10 13:51 | External Medical Summary Rpt ---
Author Author , Organization [employer] Address Unknown Phone Unavailable Care Team Providers Care Teacher Early Childhood Development Name Role Phone FELIBERTO DONALD, Unavailable Unavailable FELIBERTO DONALD JEFFREY W, Unavailable Unavailable CARMENCITA PAULINO DAVID A, Unavailable Unavailable [facility], Unavailable Unavailable [facility] AYO GILL HAN, Unavailable Unavailable VIRAJ MORA, Unavailable Unavailable VIRAJ PEREYRA [facility], Unavailable Unavailable [facility] Merle WHITAKER, Merle WHITAKER Unavailable Unavailable [id number], Unavailable Unavailable [facility] VIOLETA SINGLETON, Unavailable Unavailable VIOLETA SINGLETON [facility] Unavailable Unavailable [facility] DIXIE CEBALLOS SLOSS, Unavailable Unavailable DIXIE [facility] Unavailable Unavailable CTR, [facility] Unavailable Unavailable HOSPICE, [facility] PRANEETH REYES, Unavailable Unavailable PRANEETH REYES [facility] Unavailable Unavailable #10-1139, [facility] #10-1139 [facility] Unavailable Unavailable #1140, [facility] Purpose Continuity of Care Document - 12-22-2007 through 2016 Problems Code Diagnosis DOS Provider Status 46040 OBSTRUCTIVE 10-17-2008 [facility] SLEEP [facility] 56411 RESTLESS 08-18-2008 PAULINO, LEGS CARMENCITA W SYNDROME 73424 HYPERSOMNIA 08-18-2008 LORA, WITH SLEEP CARMENCITA W [place] UNSPECIFIED 44232 OTHER 08-18-2008 LORA, MALAISE AND CARMENCITA W FATIGUE 10144 UNSPECIFIED 08-11-2008 [place] VIRAL [facility] INFECTION IN CCE & UNS SITE 64214 INSOMNIA 08-11-2008 [place] UNSPECIFIED [place] 84624 OBESITY, 08-03-2008 [facility] UNSPECIFIED MEDICAL CTR 4011 ESSENTIAL 06-30-2008 [place] HYPERTENSIO [place] N, BENIGN 80586 HELICOBACTE 05-16-2008 [place] INFECTION 70560 UNS 05-03-2008 GASTRITIS&G [facility] ASTRODUODIT [facility] W/O [facility] HEMORR 5589 OTH&UNSPEC 05-03-2008 [facility] NONINFECTIO N EMERGENCY US PHYS INC GASTROENTER ITIS&COLITI S 7804 DIZZINESS 05-03-2008 GIDDINESS [facility] 13715 NAUSEA 05-03-2008 ALONE [facility] 49637 ABDOMINAL 05-03-2008 [facility] [place] PAIN, RADIOLOGY UNSPECIFIED SITE 90598 ABDOMINAL 05-03-2008 PAIN OTHER [facility] SPECIFIED [facility] 2724 OTHER AND 04-26-2008 [place] UNSPECIFIED [facility] HYPERLIPIDE PABLO 66578 OTH 03-07-2008 [place] [facility] EXTRAPYRAMI [facility] DZ&ABNORM MOVMNT DISORDER 2141 LIPOMA OF 02-08-2008 [facility] OTHER SKIN SURGICAL AND SPECIALIST SUBCUTANEOU S TISSUE 8900 OPEN WOUND 02-08-2008 [facility] HIP&THIGH MEDICAL CTR WITHOUT MENTION COMP V679 UNSPECIFIED 01-21-2008 [place] FOLLOW-UP [facility] EXAMINATION 4019 UNSPECIFIED 01-13-2008 [facility] HYPERTENSIO CENTER N 66536 ASTHMA, 01-13-2008 [facility] UNSPECIFIED MEDICAL , CENTER UNSPECIFIED STATUS 33830 UNSPECIFIED 01-13-2008 [facility] ARTHOPATHY, CENTER HAND V1302 PERSONAL 01-13-2008 [facility] HISTORY OF MEDICAL URINARY CENTER TRACT INFECTION V173 FAMILY 01-13-2008 [facility] HISTORY OF MEDICAL ISCHEMIC CENTER HEART DISEASE V1749 FAMILY 01-13-2008 [facility] HISTORY OF MEDICAL OTHER CENTER CARDIOVASCU LAR DISEASES V175 FAMILY 01-13-2008 [facility] HISTORY OF MEDICAL ASTHMA CENTER 13939 PAIN IN 12-28-2007 [facility] JOINT SURGICAL PELVIC SPECIALIST REGION AND THIGH [...] AR O MA TA CY BL ET CH 00 11 03 00 15 30 ME 46 SH Ac LO 37 -1 -1 .0 NI 00 OR ti RT 80 9- 2- 00 FE 17 T ve SLOAN 21 20 20 E RA LI 30 08 09 CO CH DO 1 UN EL NE TY 50 PH AR MG M TA BL ET 00 03 03 00 30 25 FR 83 AL Ac 03 -0 -1 .0 EN 55 IK ti 70 6- 2- 00 CH 7 ER ve 24 20 20 BU 13 09 09 RG DE 0 NI PH S AR O MA CY SI 68 11 02 00 30 30 ME 45 SH Ac MV 38 -1 -2 .0 NI 90 OR ti 20 9- 6- 00 FE 32 T ve TA 06 20 20 E RA TI 71 08 09 CO CH N 6 UN EL 20 TY MG PH AR TA M BL ET ME 49 11 02 00 30 30 ME 45 SH Ac TO 88 -1 -2 .0 NI 90 OR ti NV 40 9- 6- 00 FE 33 T ve OL 40 20 20 E RA OL 60 08 09 CO CH 1 UN EL FOSTER TY CC PH ER AR M 10 0 MG TA B CH 00 11 01 02 30 30 FR 76 SH Ac LO 37 -1 -3 .0 EN 36 OR ti RT 80 9- 0- 00 CH 7 T ve SLOAN 22 20 20 BU RA LI 20 08 09 RG CH DO 1 EL NE PH AR 25 MA CY MG TA BL ET TR 50 01 01 00 30 30 FR 80 HU Ac AZ 11 -2 -3 .0 EN 42 GH ti OD 10 3- 0- 00 CH 8 ES ve ON 43 20 20 BU E 40 09 09 RG PA 10 3 TR 0 PH IC MG AR K MA D TA CY BL ET 64 11 01 00 30 30 WA 70 SH Ac 72 -1 -1 .0 L- 92 OR ti 00 9- 5- 00 MA 11 T ve 20 20 20 RT 2 RA 41 08 09 CH 0 PH EL AR MA CY #1 14 0 ME 49 11 01 00 30 30 WA 70 SH Ac TO 88 -1 -1 .0 L- 92 OR ti NV 40 9- 5- 00 MA 11 T ve OL 40 20 20 RT 3 RA OL 60 08 09 CH 1 PH EL FOSTER AR CC MA CY ER #1 10 14 0 0 MG TA B CH 00 11 01 01 30 30 FR 76 SH Ac LO 37 -1 -0 .0 EN 36 OR ti RT 80 9- 1- 00 CH 7 T ve SLOAN 22 20 20 BU RA LI 20 08 09 RG CH DO 1 EL NE PH AR 25 MA CY MG TA BL ET SI 55 11 01 01 30 30 FR 76 SH Ac MV [...] MG CY CA PS UL E ME 49 11 12 00 30 30 FR 76 AL Ac TO 88 -1 -1 .0 EN 36 IK ti NV 40 9- 8- 00 CH 8 ER ve OL 40 20 20 BU OL 60 08 08 RG DE 1 NI FOSTER PH S CC AR O MA ER CY 10 0 MG TA B NV 37 12 12 00 30 15 FR 77 AL Ac IL 00 -0 -1 .0 EN 50 IK ti OS 00 9- 8- 00 CH 8 ER ve EC 45 20 20 BU 50 08 08 RG DE OT 3 NI C PH S 20 AR O .6 MA CY MG TA BL ET BI 00 12 12 00 11 14 FR 77 AL Ac SM 90 -0 -1 2. EN 50 IK ti AT 41 9- 8- 00 CH 7 ER ve RO 31 20 20 0 BU L 54 08 08 RG DE TA 6 NI BL PH S ET AR O MA CH CY EW ME 50 12 12 00 52 14 [...] 2 MA MG CY TA BL ET SI 55 11 12 [...] -2 -2 .0 NI 40 GH ti NV 40 0- 0- 00 FE 40 ES [...] 01 30 30 FR 67 No Ac NV 18 -1 -2 .0 EN 91 t [...] 00 30 30 FR 67 No Ac NV 18 -1 -0 .0 EN 91 t ti OL 61 6- 1- 00 CH 0 Av ve 09 20 20 BU ai XL 00 08 08 RG la 5 bl 50 PH e AR MG MA CY TA BL ET Procedures Procedure DOS Code Location Performer Comment CONTINU E0601 [facility] [address]ENN[facility] S 9 [facility] AIRWAY PRESSURE DEVICE CONTINUOU E06[address] [facility] [address] [facility] S [facility] AIRWAY PRESSURE DEVICE CONTINUOU E06[address] [facility] S 9 [facility] HOSP[facility] AIRWAY PRESSURE DEVICE TUBING A[address] JENN[facility]ER USED WITH 9 [facility] HOSP[facility] AIRWAY PRESSURE DEVICE FILTER A70[address] [facility] [address] JENN[facility]ER NON 9 [facility] HOSPICE USED W/POS ARWAY PRESS DEVICE POLYSOM 47866 LORA PAULINO 6/>YRS 11 , CARMENCITA TSE SLEEP W W W/CPAP 4/> ADDL SAVANA ATTND POLYSOM 35094 [facility]/>YRS 9 MEDICAL MEDICAL SLEEP CTR CTR W/CPAP 4/> ADDL SAVANA ATTND IMMUNOASS 06537 JOLENE DONALDBEN NFCT 8 [facility] O AGT ANTB QUAL/SEMI LESLIE 1 STEP URNLS DIP [address] STICK/TAB [facility] [place] [address] [facility] LIPASE [address] [place] [address] COMPREHEN 73354 [facility] SIVE [address] [place] [address] METABOLIC [facility] PANEL [facility] [place] [address] [facility] AMYLASE [address] [place] [address] COLLECTIO 68276 [facility] N VENOUS [address] [place] [address] BLOOD [facility] VENIPUNCT [facility] [address] [facility] ABDOMINAL [address] [place] [address] REAL [facility] TIME [facility] W/IMAGE [facility] LIMITED BLOOD 08385 [facility] COUNT [address] [place] [address] COMPLETE [facility] AUTO&AUTO [facility] WBC SUSCEPTIB 39358 [facility] LTY STDY 8 MEDICAL MEDICAL ANTIMICRB CTR CTR IAL MICRO/AGA R DILUTJ CUL BACT 82576 [facility] XCPT 8 MEDICAL MEDICAL URINE CTR CTR BLOOD/STO OL AEROBIC ISOL COMPREHEN 95648 [facility] SIVE 8 MEDICAL MEDICAL METABOLIC CTR CTR PANEL COLLECTIO 51484 JOLENE Albina PEREYRA VENOUS 8 [facility] BLOOD VENIPUNCT URE LIPID 21233 [facility] ST JENNIFER PANEL 8 MEDICAL MEDICAL CTR CTR INJECTION J2765 [facility] 8 MEDICAL MEDICAL METOCLOPR CTR CTR AMIDE HCL UP TO 10 MG LEVEL III 51459 [facility] SLO, SURG 8 [facility] GROSS&JURGEN ROSCOPIC EXAM ANES 60610 [facility] INTEG 8 [facility] MEDICAL ES ANT CTR TRUNK & PERINEUM NOS INJECTION J[address] JENNIFER 8 MEDICAL MEDICAL CEFAZOLIN CTR CTR SODIUM [address] JENNIFER LACTATE 8 MEDICAL MEDICAL INFUSION CTR CTR UP TO [address] JENNIFER LESION 8 MEDICAL MEDICAL MRGN XCP CTR CTR SK TG T/A/L >4.0 CM REPAIR [address]26 [place] [place], INTERMEDI 8 SURGICAL AYO C ATE SPECIALIS S/A/T/E T 2.6-7.[address] JENNIFER INTERMEDI 8 MEDICAL MEDICAL ATE CTR CTR S/A/T/E 7.6-12.[address] JENNIFER FENTANYL 8 MEDICAL MEDICAL CITRATE CTR CTR 0.[address] JENNIFER ASTIN 8 MEDICAL MEDICAL TIME CTR CTR PARTIAL PLASMA/WH OLE BLOOD PROTHROMB [address] JENNIFER IN TIME 8 MEDICAL MEDICAL CTR CTR BASIC [address] JENNIFER METABOLIC 8 MEDICAL MEDICAL PANEL CTR CTR CALCIUM TOTAL ECG [address] [facility] JENNIFER SINGLETON, ROUTINE 8 MEDICAL VIOLETA ECG CENTER W/LEAST 12 LDS I&R ONLY BLOOD [address] JENNIFER COUNT 8 MEDICAL MEDICAL COMPLETE CTR CTR AUTOMATED ECG [address] JENNIFER ROUTINE 8 MEDICAL MEDICAL ECG CTR CTR W/LEAST 12 LDS TRCG ONLY W/O I&R COLLECTIO [address] JENNIFER N VENOUS 8 MEDICAL MEDICAL BLOOD CTR CTR VENIPUNCT URE Encounters Encounter Start End Date Code Location Performer Type Date OFFICE 94518 LORA PAULINO CONSULTAT 9 9 , CARMENCITA TSE W W NEW/ESTAB PATIENT 60 MIN OFFICE 64317 ANNIE MATAMOROS [address] [place] [address] O T VISIT [address] JENNIFER - 9 9 MEDICAL OUTPATIEN CTR T OFFICE 00513 ANNIE MATAMOROS 9 9 [facility] T VISIT 15 MINUTES OFFICE 78741 SALANNIE VILLA 8 8 [facility] T VISIT 15 MINUTES EMERGENCY 91945 [facility] 8 8 [facility] T [facility]ISIT [facility] 8 [facility] T [facility] EMERGENCY 48771 [facility], 8 8 [facility] EMERGENCY T VISIT PHYS INC HIGH/URGE NT SEVERITY OFFICE 34784 ANNIE MATAMOROS 8 8 [facility] T VISIT 15 MINUTES OFFICE 39435 ANNIE [facility]AMOROS 8 8 [facility] - 8 8 [facility] OUTPATIEN CTR T OFFICE 31067 ANNIE PIMENTEL 8 8 [facility] T VISIT SPECIALIS 10 T MINUTES OFFICE 25948 ANNIE PIMENTEL 8 8 [facility] T VISIT SPECIALIS 10 T MINUTES OFFICE 60565 ANNIE BLANCO 8 8 [facility] D T [facility]ISIT 15 MINUTES [facility] 8 [address] [facility] 8 8 [facility]EN CTR T OFFICE 61880 ANNIE PIMENTEL 8 8 [facility] C T NEW 45 SPECIALIS MINUTES T OFFICE [id number] ANNIE BLANCO 8 8 [facility] T VISIT 25 MINUTES
--- OUTSIDE RECORDS SUMMARY | 2016-11-10 13:51 | External Medical Summary Rpt ---
Demographics Preferred Language Swazi Marital Status Unknown Hinduism Affiliation Unknown Race Unknown Ethnic Group Unknown Author Author , Organization [employer] Address Unknown Phone Unavailable Purpose Continuity of Care Document - through 2016 Immunization No patient found.
--- OUTSIDE RECORDS SUMMARY | 2016-11-10 13:51 | External Medical Summary Rpt ---
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 Operator Name Role Phone FELIBERTO DONALD, Unavailable Unavailable FELIBERTO DONALD JEFFREY W, Unavailable Unavailable CARMENCITA PAULINO DAVID A, Unavailable Unavailable RERE SIEGEL [facility], Unavailable Unavailable [facility] AYO GILL HAN, Unavailable Unavailable VIRAJ MORA, Unavailable Unavailable VIRAJ PEREYRA [facility], Unavailable Unavailable [facility] Merle WHITAKER, Merle WHITAKER Unavailable Unavailable N [id number], Unavailable Unavailable [id number] VIOLETA SINGLETON, Unavailable Unavailable VIOLETA SINGLETON [facility] Unavailable Unavailable [facility], [facility] DIXIE CEBALLOS SLOSS, Unavailable Unavailable DIXIE [facility] Unavailable Unavailable [facility], [facility] Unavailable Unavailable HOSPICE, [facility] PRANEETH REYES, Unavailable Unavailable PRANEETH REYES [facility] Unavailable Unavailable #[phone], [facility] Unavailable Unavailable #1140, [facility] Purpose Continuity of Care Document - 12-22-2007 through 2016 Problems Code Diagnosis DOS Provider Status 94649 OBSTRUCTIVE 10-17-2008 [facility] SLEEP [facility] 10629 RESTLESS 08-18-2008 PAULINO, LEGS CARMENCITA W SYNDROME 94015 HYPERSOMNIA 08-18-2008 LORA, WITH SLEEP CARMENCITA W APNEA UNSPECIFIED 89169 OTHER 08-18-2008 LORA, MALAISE AND CARMENCITA W FATIGUE 62606 UNSPECIFIED 08-11-2008 [place] VIRAL [facility] INFECTION IN CCE & UNS SITE 52805 INSOMNIA 08-11-2008 [place] UNSPECIFIED [place] 13352 OBESITY, 08-03-2008 [facility] UNSPECIFIED MEDICAL CTR 4011 ESSENTIAL 06-30-2008 [place] HYPERTENSIO [place] N, BENIGN 46529 HELICOBACTE 05-16-2008 [place] R [place] INFECTION 96685 UNS 05-03-2008 GASTRITIS&G [facility] W/O [facility] HEMORR 5589 OTH&UNSPEC 05-03-2008 [facility] NONINFECTIO N EMERGENCY US PHYS INC GASTROENTER ITIS&COLITI S 7804 DIZZINESS 05-03-2008 GIDDINESS [facility] 69642 NAUSEA 05-03-2008 ALONE [facility] 07899 ABDOMINAL 05-03-2008 [facility] [place] PAIN, RADIOLOGY UNSPECIFIED SITE 60650 ABDOMINAL 05-03-2008 PAIN OTHER [facility] SPECIFIED [facility] 2724 OTHER AND 04-26-2008 DAVIS UNSPECIFIED [facility] HYPERLIPIDE PABLO 66099 OTH 03-07-2008 [facility] [facility] EXTRAPYRAMI [facility] STAN DZ&ABNORM MOVMNT DISORDER 2141 LIPOMA OF 02-08-2008 [facility] OTHER SKIN SURGICAL AND SPECIALIST SUBCUTANEOU S TISSUE 8900 OPEN WOUND 02-08-2008 [facility] HIP&THIGH MEDICAL CTR WITHOUT MENTION COMP V679 UNSPECIFIED 01-21-2008 [facility] FOLLOW-UP [facility] EXAMINATION 4019 UNSPECIFIED 01-13-2008 [facility] HYPERTENSIO CENTER N 42060 ASTHMA, 01-13-2008 [facility] UNSPECIFIED MEDICAL , CENTER UNSPECIFIED STATUS 97815 UNSPECIFIED 01-13-2008 [facility] ARTHOPATHY, CENTER HAND V1302 PERSONAL 01-13-2008 [facility] HISTORY OF MEDICAL URINARY CENTER TRACT INFECTION V173 FAMILY 01-13-2008 [facility] HISTORY OF MEDICAL ISCHEMIC CENTER HEART DISEASE V1749 FAMILY 01-13-2008 [facility] HISTORY OF MEDICAL OTHER CENTER CARDIOVASCU LAR DISEASES V175 FAMILY 01-13-2008 [facility] HISTORY OF MEDICAL ASTHMA CENTER 70530 PAIN IN 12-28-2007 [facility] JOINT SURGICAL PELVIC SPECIALIST REGION AND THIGH [...] HOSPICE USED W/POS [employer] DEVICE POLYSOM 95455 LORA PAULINO 8/>YRS 11 , CARMENCITA TSE SLEEP W W W/CPAP 4/> ADDL SAVANA ATTND POLYSOM 78987 [facility] 11 MED[facility] MEDICAL SLEEP CTR CTR W/CPAP 4/> ADDL SAVANA ATTND IMMUNOASS 39562 JOLENE DONALDBEN NFCT 8 [facility] O AGT ANTB QUAL/SEMI LESLIE 1 STEP URNLS DIP [address] STICK/TAB [facility] [place] [address] [facility] LIPASE [address] [place] [address] COMPREHEN 31295 [facility] SIVE [address] [place] [address] METABOLIC [facility] PANEL [facility] [address] [facility] AMYLASE [address] [place] [address] COLLECTIO 98009 [facility] N VENOUS [address] [place] [address] [facility] VENIPUNCT [facility] [address] [facility] ABDOMINAL [address] [place] [address] [facility] TIME [facility] W/IMAGE [facility] LIMITED BLOOD 61820 [facility] COUNT [address] [place] [address] [facility] AUTO&AUTO [facility] WBC SUSCEPTIB 23330 [facility] LTY STDY 8 [facility]ICAL ANTIMICRB CTR CTR IAL MICRO/AGA R DILUTJ CUL BACT 87262 [facility] XCPT 8 [facility] URINE CTR CTR BLOOD/STO OL AEROBIC ISOL COMPREHEN 30133 [facility] SIVE 8 [facility]ICAL MEDICAL METABOLIC CTR CTR PANEL COLLECTIO 25375 JOLENE Albina PEREYRA VENOUS 8 [facility] BLOOD VENIPUNCT URE LIPID [address] [facility] [address] JENNIFER PANEL 8 [facility]ICAL MEDICAL CTR CTR INJECTION J2765 [facility] 8 [facility]ICAL MEDICAL METOCLOPR CTR CTR AMIDE HCL UP TO 10 MG LEVEL III 66959 [facility] SLO, SURG 8 [facility] PATHOLOGY CENTER GROSS&JURGEN ROSCOPIC EXAM ANES 78274 [facility] 8 [facility] MEDICAL ES ANT CTR TRUNK & PERINEUM NOS INJECTION J[address] JENNIFER 8 MEDICAL MEDICAL CEFAZOLIN CTR CTR SODIUM [address] JENN[facility] LACTATE 8 [facility]ICAL MEDICAL INFUSION CTR CTR UP TO [address] JENNIFER LESION 8 MEDICAL MEDICAL MRGN XCP CTR CTR SK TG T/A/L >4.0 CM REPAIR [address] [place], INTERMEDI 8 SURGICAL AYO C ATE SPECIALIS S/A/T/E T 2.6-7.[address] JENNIFER INTERMEDI 8 MEDICAL MEDICAL ATE CTR CTR S/A/T/E 7.6-12.[address] JENNIFER FENTANYL 8 MEDICAL MEDICAL CITRATE CTR CTR 0.[address] JENNFIER ASTIN 8 MEDICAL MEDICAL TIME CTR CTR PARTIAL PLASMA/WH OLE BLOOD PROTHROMB [address] JENNIFER IN TIME 8 MEDICAL MEDICAL CTR CTR BASIC [address] JENN[facility]ER METABOLIC 8 MEDICAL MEDICAL PANEL CTR CTR CALCIUM TOTAL ECG [address] [facility] J[facility] SINGLETON, ROUTINE 8 MEDICAL VIOLETA ECG CENTER W/LEAST 12 LDS I&R ONLY BLOOD [address] JENNIFER COUNT 8 MEDICAL MEDICAL COMPLETE CTR CTR AUTOMATED ECG [address] JENNIFER ROUTINE 8 MEDICAL MEDICAL ECG CTR CTR W/LEAST 12 LDS TRCG ONLY W/O I&R COLLECTIO [address] JENNIFER N VENOUS 8 MEDICAL MEDICAL BLOOD CTR CTR VENIPUNCT URE Encounters Encounter Start End Date Code Location Performer Type Date OFFICE 78612 LORA PAULINO CONSULTAT 9 9 , CARMENCITA TSE W W NEW/ESTAB PATIENT 60 MIN OFFICE 28397 ANNIE MATAMOROS [address] [place] [address] O T VISIT [address] [facility] - 9 9 MEDICAL OUTPATIEN CTR T OFFICE 55355 ANNIE MATAMOROS 9 9 [facility] FELIBERTO O T VISIT 15 MINUTES OFFICE 17488 SALANNIE VILLA 8 8 [facility] T VISIT 15 MINUTES EMERGENCY 15050 [facility] 8 8 [facility] T [facility]ISIT [facility] T [facility] EMERGENCY 69797 [facility], 8 8 [facility] EMERGENC[facility] T VISIT PHYS INC HIGH/URGE NT SEVERITY OFFICE 87543 ANNIE MATAMOROS 8 8 [facility] O T VISIT 15 MINUTES OFFICE 50568 ANNIE MATAMOROS 8 8 [facility] T [facility]ISIT 15 MINUTES [facility] - 8 8 MEDICAL OUTPATIEN CTR T OFFICE 78208 ANNIE PIMENTEL 8 8 SURGICAL AYO C T VISIT SPECIALIS 10 T MINUTES OFFICE 67382 ANNIE PIMENTEL 8 8 SURGICAL AYO C T VISIT SPECIALIS 10 T MINUTES OFFICE 62246 ANNIE BLANCO 8 8 [facility] D T VISIT 15 MINUTES HOSPITAL [facility] 8 [address] T [facility] 8 8 MEDICAL OUTPATIEN CTR T OFFICE 80192 ANNIE PIMENTEL 8 8 SURGICAL AYO C T NEW 45 SPECIALIS MINUTES T OFFICE 51403 ANNIE BLANCO 8 8 [facility] VIRAJ D T VISIT 25 MINUTES
[2016-11-10] MEDS ORDERED: BACTRIM DS 8001 TA1 PO (13:59)
--- NOTE | 2016-11-10 13:59 | Emergency Room Report ---
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 N Clinical Suspician of Infection? N Mental Status: 1 - Regular (Normal Baseline) Sepsis Risk:Low Sepsis Risk Have you (or family members/close friends) recently traveled outside the [place]? N If Yes, where/when: Have you had exposure to infectious disease within the past month? N TB? Other? Specify: Source patient, RN notes reviewed, family, RN/MD Exam Limitations no limitations Comment This is a 40-year-old male patient presenting with a laceration to the RIGHT lower leg after work-related injury, sustained just half an hour prior to arrival, with a piece of glass breaking and injuring her above-mentioned limb. ALLERGIES Coded Allergies: No Known Allergies (11/10/16) History Medical History General CAD? No Angina: No WI: No Hypertension? No Hyperlipidemia? No CHF? No DVT? No PE? No COPD? No Asthma? No Anemia? No GERD? No Gastric ulcers? No GI Bleed? No Hernia? No Thyroid Problems? No Hypothyroidism? No CVA? No Seizures? No Diabetes? No Renal Insuffiency? No End Stage Renal Disease? No UTI? No Stones? No BPH? No GB Disease: No Nephritic Syndrome? No Asplenia? No Hepatitis? No Sickle Cell Disease? No Arthritis? No Migraines? No Cataracts? No Glaucoma? No MRSA? No HIV? No TB? No Anxiety? No Depression? No Cancer? No More? No Immunization Hx DT/Tetanus 1-4 Years Ago Surgical Hx Previous Surgery?N Social History Smoking Hx Smoker: Never Smoker Tobacco: No Alcohol Alcohol: No Review of Systems All Other Systems Reviewed and Negative Skin lesions (laceration RIGHT leg) Physical Exam Vital Signs Vital Signs Date Time Temp Pulse Resp B/P Pulse O2 O2 Flow FiO2 Ox Delivery Rate 11/10 1404 98.2 94 20 146/100 97 / 1403 98.2 94 20 146/100 97 / 1322 97.9 98 18 156/125 96 General Appearance normal appearance, WD/WN Respiratory Status Yes: trachea midline, chest symmetrical, non tender chest. No: respiratory distress. Lung Sounds bilateral: normal breath sounds, lungs clear. 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 No Comment Tolerated procedure well, we'll send him home with position for antibiotics and instructed him to change dressing daily, keep wound clean and dry, have sutures removed per discharge instructions in urgent treatment care center. Results/Orders Current Medication Orders Sig/Laura Start time Last Medication Dose Route Stop Time Status Admin Lidocaine HCl 0 .STK-MED ONE 11/10 1332 DC .ROUTE Procedures Laceration/Wound Repair Laceration/Wound Repair Risks/benefits discussed with pt/guardian? Yes Tetanus status not up to date Wound Location RIGHT lower extremity, distal/lateral aspect Wound Length (cm) 3 Wound's Depth, Shape sucutaneous tissue, linear Wound Explored no FB identified Risk of retained FB explained to pt/guardian? Yes Irrigated w/ Saline (ccs) 20 Wound Prep Betadine, Saline Anesthesia 1% Lidocaine, Local Volume Anesthetic (ccs) 20 Wound Debrided none Wound Repaired With sutures Suture Size/Type 5:0, Ethilon Total Number Sutures 8 Sterile Dressing Applied Yes Departure Departure Time of Disposition 1357 Disposition DC Home or Self Care(routine) Clinical Impression Primary Impression: Laceration of right lower leg Qualifiers: Encounter type: initial encounter Qualified Code: S81.811A - Laceration without foreign body, right lower leg, initial encounter Condition STABLE Patient Instructions DI for Open Laceration Additional Instructions Please keep wound clean and dry, watch for signs of possible local infection, take antibiotics as directed, return to the urgent treatment care center in 10 days for suture removal. Discharge Counseling Counseled pt/family regarding diagnosis, medications/RX, home care, follow up needs Comment Please keep wound clean and dry, watch for signs of possible local infection, take antibiotics as directed, return to the urgent treatment care center in 10 days for suture removal. Prescriptions Current Visit Scripts SULFAMETHOXAZOLE W/TRIMETHOPRI (Bactrim Ds Tab) 1 TABLET PO BID #14 TAB ED Critical Care Critical Care No at 3737
[2016-11-10 14:04] VITALS: BP 146/100
== END 2016-11-10 14:04 | disposition home or self-care (01) ==
LOC: ER 13:17
PROC: 0HQKXZZ Repair Right Lower Leg Skin, External Approach (ICD-10-PCS; principal; 2016-11-10)
DX: S81.811A Laceration without foreign body, right lower leg, initial encounter (principal); W25.XXXA Contact with sharp glass, initial encounter; Y92.69 Other specified industrial and construction area as the place of occurrence of the external cause